=== PATIENT | female | born 2000 | race African-American/Black ===

== ENCOUNTER 2021-08-20 16:02 | Emergency (ER) | payer OTHER ==
[~2021-08-20] VITALS: Ht 160 cm; Wt 63.5 kg
[2021-08-20] MEDS ORDERED: EC-NAPROXEN375 MG PO (21:17)
[2021-08-20] MEDS ORDERED: BACTRIM 400-801 EACH PO (21:17)
[2021-08-20] MEDS ORDERED: TAMS0.4C PO (21:17)
== END 2021-08-20 22:15 | disposition home or self-care (01) ==
LOC: ER 16:02
DX: N20.1 Calculus of ureter (principal); N20.0 Calculus of kidney